=== PATIENT | female | born 1955 | race Caucasian/White ===

== ENCOUNTER 2023-10-10 11:11 | Emergency (ER) | payer MEDICARE, SELFPAY ==
[2023-10-10 11:19] VITALS: BP 151/88; PULSE 66; RESP 16; TEMP 36.4; O2SAT 96
--- NOTE | 2023-10-10 11:50 | ED.URI ---
HPI - URI/Sore Throat General Chief Complaint: Upper Respiratory Infection Stated Complaint: Sinus Infection symptoms Time Seen by Provider: 10/10/23 11:43 Source: patient and RN notes reviewed Mode of arrival: ambulatory Limitations: no limitations History of Present Illness HPI Narrative: Patient presents today with 3 day history of sinus pressure, fatigue, sore throat, dry cough, postnasal drip, hoarse voice. She has tried Singulair, Tylenol sinus and a sinus rinse with short term relief. Related Data Home Medications Medication Instructions Recorded Confirmed alprazolam 0.25 mg tablet 0.25 mg PO DIRECTED 10/10/23 10/10/23 amlodipine 5 mg tablet 5 mg PO HS 10/10/23 10/10/23 atorvastatin 40 mg tablet 40 mg PO DAILY 10/10/23 10/10/23 fluticasone furoate 100 1 inh inhalation DAILY 10/10/23 10/10/23 mcg/actuation blister powder for inhalation (Arnuity Ellipta) montelukast 10 mg tablet 10 mg PO DAILY 10/10/23 10/10/23 sertraline 100 mg tablet 200 mg PO DAILY 10/10/23 10/10/23 sumatriptan succinate 25 mg tablet 25 mg PO DIRECTED 10/10/23 10/10/23 trazodone 50 mg tablet 100 mg PO HS 10/10/23 10/10/23 Allergies Allergy/AdvReac Type Severity Reaction Status Date / Time Penicillins Allergy Mild Other Verified 10/10/23 11:27 Sulfa (Sulfonamide Allergy Mild Other Verified 10/10/23 11:27 Antibiotics) Review of Systems Review of Systems: CONSTITUTIONAL: Denies body aches, fever, chills, or sweats.+ fatigue EYES: Denies visual changes, redness, or discharge. ENT: + congestion, sinus pressure, postnasal drip, sore throat, hoarse voice CARDIOVASCULAR: Denies chest pain, palpitations, or edema. RESPIRATORY: Denies dyspnea.+ dry cough GASTROINTESTINAL: Denies abdominal pain, nausea, vomiting, or diarrhea. GENITOURINARY: Denies dysuria or hematuria. SKIN: Denies rash, itching, or wounds. MUSCULOSKELETAL: Denies back pain, joint pain, or myalgia. NEUROLOGIC: Denies headache, numbness, tingling, or weakness. PSYCH: Denies depression or anxiety. [facility] Past Medical History Medical History (Updated 10/10/23 @ 12:13 by Gardenia Isbell, CLINICAL RESEARCH SPECIALIST, ) High cholesterol Hypertension Migraines Comments At time of signature, I have reviewed and agree with nursing past medical, surgical, social and family history unless otherwise noted. Please see nursing chart for further information. There is no relevant family history pertinent to the presenting complaint Exam Narrative: GENERAL: Mildly ill-appearing, well-nourished, and in no acute distress. HEAD: Normocephalic, atraumatic. EYES: EOMI. No redness or drainage. Conjunctivae normal. ENT: Mucous membranes pink and moist. Nares congested with rhinorrhea. TMs normal bilaterally. Throat normal. Uvula midline. NECK: Normal AROM. Supple. Bilateral tonsillar lymphadenopathy CHEST: No respiratory distress. Clear to auscultation. HEART: Regular rate and rhythm. No murmur appreciated. EXTREMITIES: Normal range of motion. No edema. SKIN: Warm, dry, no rash. Capillary refill normal. Normal skin turgor. NEURO: No focal deficits. Alert and oriented x3. Gait steady. PSYCH: Normal affect. No signs of depression or anxiety. Course Course Level of Care: Express Care Visit Vital Signs Vital signs: Vital Signs Temperature 97.6 F 10/10/23 11:19 Pulse Rate 66 10/10/23 11:19 Respiratory Rate 16 10/10/23 11:19 Blood Pressure 151/88 H 10/10/23 11:19 Pulse Oximetry 96 10/10/23 11:19 Temperature 97.6 F 10/10/23 11:19 Pulse Rate 66 10/10/23 11:19 Respiratory Rate 16 10/10/23 11:19 Blood Pressure 151/88 H 10/10/23 11:19 Pulse Oximetry 96 10/10/23 11:19 Reviewed MDM - URI/Sore Throat MDM Narrative Medical decision making narrative: All testing negative. Symptoms likely viral in etiology. Discussed [id number] medication use and duration of illness. No prescription medications indicated at this time. Anticipatory gu
== END 2023-10-10 12:15 | disposition home or self-care (01) ==
PROVIDERS: Emergency Provider Nurse Practitioner
DX: J06.9 Acute upper respiratory infection, unspecified (principal); Z20.822 Contact with and (suspected) exposure to COVID-19; E78.00 Pure hypercholesterolemia, unspecified; I10 Essential (primary) hypertension
CPT/HCPCS: 87081; 87426; 87804; 87880; 99213; C9803; G0463